=== PATIENT | female | born 1980 | race Caucasian/White ===

== ENCOUNTER 2017-03-23 20:23 | Emergency (ER) | payer BC ==
--- NOTE | 2017-03-23 20:32 | PDOC ---
Rapid Medical Evaluation Time Seen by Provider: 03/23/17 20:25 Medical Evaluation: Allergies Allergy/AdvReac Type Severity Reaction Status Date / Time No Known Allergies Allergy Verified 06/16/14 21:54 03/23/17 20:27 I have performed a brief in-person evaluation of this patient. The patient presents with a chief complaint of: punched R [place] door with R fist, lac to R hand Pertinent physical exam findings: 1 inch lac to radial R wrist, not actively bleeding, neurovascularly intact, tetanus UTD I have ordered the following: nothing The patient will proceed to the ED for further evaluation.
[2017-03-23 20:34] VITALS: BP 119/81; PULSE 96; TEMP 98.5; BMI 21.6
[2017-03-23] MEDS ORDERED: DIPHTH,PERTUSS(ACELL),TET 0.5 ML DISP.SYRIN IM ONE (20:58)
--- NOTE | 2017-03-23 21:00 | PDOC ---
History of Present Illness - General Chief Complaint: Laceration Stated Complaint: LACERATION Time Seen by Provider: 03/23/17 20:25 History Source: Patient - History of Present Illness Timing/Duration: reports: this evening Past History - Past Medical History Allergies/Adverse Reactions: Allergies Allergy/AdvReac Type Severity Reaction Status Date / Time No Known Allergies Allergy Verified 03/23/17 20:34 Home Medications: Ambulatory Orders No Home Medications 0 dose .ROUTE UTDICT 07/09/13 COPD: No Psychiatric Problems: Yes (anxiety) - Suicide/Smoking/Psychosocial Hx Smoking History: Never smoked Have you smoked in the past 12 months: No Number of Cigarettes Smoked Daily: 0 Information on smoking cessation initiated: No Hx Alcohol Use: No Drug/Substance Use Hx: No Substance Use Type: None Review of Systems - Review of Systems Integumentary: Yes: Other (wound) *Physical Exam - Vital Signs Last Vital Signs Temp Pulse Resp BP Pulse Ox 98.5 F 96 H 18 119/81 100 03/23/17 20:27 03/23/17 20:27 03/23/17 20:27 03/23/17 20:27 03/23/17 20:27 - Physical Exam General Appearance: Yes: Appropriately Dressed. No: Apparent Distress HEENT: positive: Normal Voice Neck: positive: Supple Respiratory/Chest: negative: Respiratory Distress Extremity: positive: Other (< 0.5 cm linear lac to volar aspect of R wrist w/ multiple abrasion to dorsum of fingers, no obvious FB, no swelling/deformity to hand) Integumentary: positive: Dry, Warm Neurologic: positive: Fully Oriented, Alert, Normal Mood/Affect Procedures - Laceration/Wound Repair Right Wrist Wound Length: to 2.5 cm Wound's Depth, Shape: superficial Irrigated w/ Saline: Yes Betadine Prep: Yes Suture Size/Type: 5:0, nylon Number of Sutures: 6 Sterile Dressing Applied: Yes (bacitarcin and bandaid) ED Treatment Course - RADIOLOGY Radiology Studies Ordered: Category Date Time Status WRIST W/HAND-RIGHT* [RAD] Stat Radiology 03/23/17 20:58 Ordered Medical Decision Making - Medical Decision Making 03/23/17 20:58 36-year-old female, no significant history, here w/ lac to right wrist after she punched a hole in a glass window tonight. No numbness or tingling. Denies hand pain/swelling/deformity See exam Wrist lac -tetanus -xr r/o fb (glass) -lac repair 03/23/17 22:24 X-ray negative for foreign body or fracture. Status post lac repair. Will discharge with wound check as needed in 2 days *DC/Admit/Observation/Transfer Diagnosis at time of Disposition: Wrist laceration Qualifiers: Encounter type: initial encounter Laterality: right Qualified Code(s): S61.511A - Laceration without foreign body of right wrist, initial encounter - Discharge Dispostion Disposition: HOME Condition at time of disposition: Good - Referrals Referrals: STAFF,NOT ON [Primary Care Provider] - - Patient Instructions Printed Discharge Instructions: DI for Laceration Repair Additional Instructions: Keep dressing in place for at least 24 hours after which one can be opened to air. You can gently cleaned wound with mild soap and water after 24 hours to prevent crusting over the suture knots. You can also apply an antibiotic ointment twice a day until sutures are removed. Return for redness, discharge or fever Sutures are removed in 7 days - Post Discharge Activity
[2017-03-23] MEDS ORDERED: LIDOCAINE HCL 1%, 10 MG/ML (50 mL VIAL) SQ ONE (22:02)
[2017-03-23] MEDS ORDERED: LIDOCAINE HCL 1%, 10 MG/ML (20ML VIAL) ONE (22:02)
== END 2017-03-23 22:26 | disposition home or self-care (01) ==
LOC: JERFT 20:23
PROC: 3E0234Z Introduction of Serum, Toxoid and Vaccine into Muscle, Percutaneous Approach (ICD-10-PCS; principal; 2017-03-23)
PROC: 0HQDXZZ Repair Right Lower Arm Skin, External Approach (ICD-10-PCS; 2017-03-23)
DX: S61.511A Laceration without foreign body of right wrist, initial encounter (principal); W25.XXXA Contact with sharp glass, initial encounter; Y93.89 Activity, other specified; Y92.89 Other specified places as the place of occurrence of the external cause
CPT/HCPCS: 73110-TC-RT; 73130-TC-RT; 90715; 99281-25